=== PATIENT | male | born 1995 | race Caucasian/White ===

== ENCOUNTER 2017-07-15 00:57 | Emergency (ER) | payer SELFPAY ==
[~2017-07-15] VITALS: Ht 167.6 cm; Wt 60.0 kg
[~2017-07-15 00:57] MED LIST: NICOINH PO; PANT40IN3 PO; [UNRECOGNIZED DRUG - CODE] TOP
[2017-07-15 00:58] VITALS: BP 128/76; PULSE 68; RESP 18; TEMP 99.3; O2SAT 100
[2017-07-15 01:10] VITALS: BP 133/72; PULSE 64; RESP 18; O2SAT 100
--- NOTE | 2017-07-15 02:26 | PD ---
HPI Chief Complaint: Medical Clearance Time Seen by Provider: 02:13 Travel History International Travel<30 days: No Contact w/Intl Traveler<30days: No Traveled to known affect area: No History of Present Illness HPI 22-year-old male requesting detox. Patient has history of heroin abuse for the past few months. Last use was last night. Patient complains of muscle pain. Patient denies any headache. Patient denies chest pain or shortness of breath. Patient denies abdominal pain. Patient denies any nausea vomiting diarrhea. Patient denies any fever chills. PFSH Past Medical History Medical History: Denies Significant Hx Tetanus Vaccination: Never Vaccinated Influenza Vaccination: No Past Surgical History Surgical History: No Previous Surgery Social History Alcohol Use: Yes Tobacco Use: Yes Substance Use: Yes (heroin, marijuana) Allergies-Medications (Allergen,Severity, Reaction): Coded Allergies: No Known Allergies (Unverified Adverse Reaction, Unknown, 07/15/17) Reported Meds & Prescriptions Reported Meds & Active Scripts Active No Active Prescriptions or Reported Medications Review of Systems General / Constitutional: No: Fever Eyes: No: Visual changes HENT: No: Headaches Cardiovascular: No: Chest Pain or Discomfort Respiratory: No: Shortness of Breath Gastrointestinal: No: Abdominal Pain Genitourinary: No: Dysuria Musculoskeletal: Positive: Pain Skin: No Rash Neurologic: No: Weakness Psychiatric: No: Depression Endocrine: No: Polydipsia Hematologic/Lymphatic: No: Easy Bruising Physical Exam Narrative GENERAL: Well-nourished, well-developed patient. SKIN: Focused skin assessment warm/dry. HEAD: Normocephalic. EYES: No scleral icterus. No injection or drainage. NECK: Supple, trachea midline. No JVD or lymphadenopathy. CARDIOVASCULAR: Regular rate and rhythm without murmurs, gallops, or rubs. RESPIRATORY: Breath sounds equal bilaterally. No accessory muscle use. GASTROINTESTINAL: Abdomen soft, non-tender, nondistended. MUSCULOSKELETAL: No cyanosis, or edema. BACK: Nontender without obvious deformity. No CVA tenderness. Neurologic exam: Patient's awake and alert oriented 3. No obvious focal neurological deficit. Data Data Last Documented VS Vital Signs Date Time Temp Pulse Resp B/P (MAP) Pulse Ox O2 Delivery O2 Flow Rate FiO2 07/15/17 01:10 64 18 133/72 (92) 100 Room Air 07/15/17 00:58 99.3 MDM Medical Decision Making Medical Screen Exam Complete: Yes Emergency Medical Condition: Yes Differential Diagnosis Differential diagnosis including drug abuse, withdrawal symptoms. Narrative Course 22-year-old male requesting detox. History of heroin abuse. Patient's awake alert oriented 3. Vital signs stable. Diagnosis Primary Impression: Substance abuse Patient Instructions: General Instructions Additional Instructions: Advised [facility], [place], [facility]. Med/Other Pt SpecificInfo: No Meds Exist/No RX given Scripts No Active Prescriptions or Reported Meds Disposition: 01 DISCHARGE HOME Condition: Stable Ba Olivera MD Jul 15, 2017 02:26
== END 2017-07-15 02:28 | disposition home or self-care (01) ==
LOC: NEPC 00:57
DX: F11.10 Opioid abuse, uncomplicated (principal)
CPT/HCPCS: 99282